=== PATIENT | male | born 1980 | race Caucasian/White ===

== ENCOUNTER 2020-11-15 12:41 | Emergency (ER) | payer SELFPAY ==
[~2020-11-15] VITALS: Ht 182.9 cm; Wt 86.0 kg
[2020-11-15 15:11] VITALS: BP 122/83
[2020-11-15] MEDS ORDERED: LIDOCAINE 1% Multi-Dose 20 ML VIAL. INJ ONE (16:00)
--- NOTE | 2020-11-15 16:27 | RAD ---
Three-view right hand dated 11/15/2020. No comparison available. CLINICAL INDICATION: Pain. Laceration fourth digit FINDINGS: 3 views right hand show normal bony alignment. No displaced fracture. No periostitis or bone destruct ion. No acute osseous or articular abnormality. No radiopaque foreign body. IMPRESSION: No acute radiographic abnormality. Electronically signed by: Jason Herrmann MD (11/15/2020 4:24 PM) [facility]
--- NOTE | 2020-11-15 16:36 | PHYS DOC ---
Past Medical History Past Medical History: No Pertinent History (JASON SHANNON DO) Past Surgical History: No Surgical History (PARISH YEPEZ APRN) Past Surgical History: No Surgical History (JASON SHANNON DO) General Adult EDM: Chief Complaint: LACERATION/AVULSION HPI: HPI: Patient is a 40 year old male who presents with was opening a can of hummus and the edge of the can cut his right fourth tip of finger causing a 2 cm laceration. He is up-to-date on his tetanus. He states he has no medical history. Rates his pain a 5 out of 10 at this time. (PARISH YEPEZ APRN) Review of Systems: Review of Systems: Constitutional: Denies fever or chills. [] Eyes: Denies change in visual acuity. [] HENT: Denies nasal congestion or sore throat. [] Respiratory: Denies cough or shortness of breath. [] Cardiovascular: Denies chest pain or edema. [] GI: Denies abdominal pain, nausea, vomiting, bloody stools or diarrhea. [] : Denies dysuria. [] Musculoskeletal: Denies back pain or joint pain. + Right fourth finger pain [] Integument: Denies rash. + Right fourth finger laceration [] Neurologic: Denies headache, focal weakness or sensory changes. [] Endocrine: Denies polyuria or polydipsia. [] Lymphatic: Denies swollen glands. [] Psychiatric: Denies depression or anxiety. [] (PARISH YEPEZ APRN) Heart Score: C/O Chest Pain: No Risk Factors: Risk Factors: DM, Current or recent (<one month) smoker, HTN, HLP, family history of CAD, obesity. Risk Scores: Score 0 - 3: 2.5% MACE over next 6 weeks - Discharge Home Score 4 - 6: 20.3% MACE over next 6 weeks - Admit for Clinical Observation Score 7 - 10: 72.7% MACE over next 6 weeks - Early Invasive Strategies (PARISH YEPEZ APRN) Current Medications: Current Medications Medications (Trade) Dose Ordered Sig/Maik Start Time Stop Time Status Last Admin Dose Admin Lidocaine HCl (Lidocaine 1% 20ml Vial) 20 ml 1X ONCE 11/15/20 16:00 11/15/20 16:01 DC (PARISH YEPEZ APRN) Allergies: Allergies: Allergies Coded Allergies Type Severity Reaction Last Updated Verified No Known Drug Allergies 11/15/20 No (PARISH YEPEZ APRN) Physical Exam: PE: Constitutional: Well developed, well nourished, no acute distress, non-toxic appearance. [] HENT: Normocephalic, atraumatic, bilateral external ears normal, oropharynx moist, no oral exudates, nose normal. [] Eyes: PERRLA, EOMI, conjunctiva normal, no discharge. [] Neck: Normal range of motion, no tenderness, supple, no stridor. [] Cardiovascular:Heart rate regular rhythm, no murmur [] Lungs & Thorax: Bilateral breath sounds clear to auscultation [] Abdomen: Bowel sounds normal, soft, no tenderness, no masses, no pulsatile masses. [] Skin: Warm, dry, no erythema, no rash. Fourth finger tip right hand laceration. Edges approximated. [] Back: No tenderness, no CVA tenderness. [] Extremities: No tenderness, no cyanosis, no clubbing, ROM intact, no edema. [] Neurologic: Alert and oriented X 3, normal motor function, normal sensory function, no focal deficits noted. [] Psychologic: Affect normal, judgement normal, mood normal. [] (PARISH YEPEZ APRN) Current Patient Data: Vital Signs: Vital Signs Date Time Temp Pulse Resp B/P (MAP) Pulse Ox O2 Delivery O2 Flow Rate FiO2 11/15/20 15:11 97.8 83 16 122/83 97 Room Air 97.8 (PARISH YEPEZ APRN) EKG: EKG: [] (PARISH YEPEZ APRN) Radiology/Procedures: Radiology/Procedures: [] Impression: [facility] [address] [place] [address] IMAGING REPORT Signed PATIENT: MAIKEL SWANSON ACCOUNT: [id number] : 1980 LOCATION: ER AGE: 40 SEX: M EXAM STATUS: REG ER ORD. PHYSICIAN: PARISH YEPEZ APRN REASON: LACERATION TO 4TH FINGER TIP PROCEDURE: HAND RIGHT 3V Three-view right hand dated 11/15/2020. No comparison available. CLINICAL INDICATION: Pain. Laceration fourth digit FINDINGS: 3 views right hand show normal bony alignment. No displaced fracture. No periostitis or bone destruction. No acute osseous or articular abnormality. No radiopaque foreign body. IMPRESSION: No acute radiographic abnormality. Electronically signed by: Jason Herrmann MD (11/15/2020 4:24 PM) [facility] [place] DICTATED and SIGNED BY: JASON HERRMANN MD DATE: 11/15/20 [id number] (PARISH YEPEZ APRN) Course & Med Decision Making: Course & Med Decision Making Pertinent Labs and Imaging studies reviewed. (See chart for details) See HPI. Alert and oriented x4. Ambulatory steady gait. Skin pink warm and dry. Radial pulse strong present. Cap refill less than 2 seconds. No nailbed injury. Full range of motion of all joints in the finger. No joint deformity or laxity. Laceration repair Location: 2 cm right fourth finger tip Local anesthesia: 1% lidocaine Interrupted sutures/Internal sutures: 4 sutures using 4-0 Nerve/ligament/muscle damage: None Cleaning and irrigation: Chlorhexidine and saline The appropriate timeout was taken. The area was prepped and draped in the usual sterile fashion. The wound was copiously irrigated with normal saline and chlorhexidine. Patient tolerated well without complication. Dressing was applied to the area follow-up education is given to observe for signs and symptoms of infection, bleeding and to follow-up promptly if these occur. Patient can return in 48 hours for a wound recheck. Sutures to be removed in 7 to 10 days. [] (PARISH YEPEZ APRN) Dragon Disclaimer: Rafael Disclaimer: This electronic medical record was generated, in whole or in part, using a voice recognition dictation system. (PARISH YEPEZ APRN) Departure Departure Impression: Primary Impression: Laceration Disposition: 01 HOME / SELF CARE / HOMELESS Condition: STABLE Referrals: ZEUS PLUMMER MD (PCP) Patient Instructions: Laceration Care, Adult Additional Instructions: Follow-up with primary care return to the emergency room for suture removal in 10 days. Keep clean and covered. Watch for signs of infection. 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 I was available for consultation as needed during the patient's visit in the emergency department. I agree with the clinical impression, plan, and disposition. (JASON SHANNON DO) PARISH YEPEZ APRN Nov 15, 2020 16:36 JASON SHANNON DO Nov 16, 2020 07:09
== END 2020-11-15 17:13 | disposition home or self-care (01) ==
LOC: ER 12:41
DX: S61.214A Laceration without foreign body of right ring finger without damage to nail, initial encounter (principal); Y28.8XXA Contact with other sharp object, undetermined intent, initial encounter; Y93.89 Activity, other specified; Y92.89 Other specified places as the place of occurrence of the external cause; Y99.8 Other external cause status
CPT/HCPCS: 12001; 73130; 99283; J3490